=== PATIENT | male | born 1930 | race Caucasian/White ===

== ENCOUNTER 2017-01-01 11:36 | Inpatient (IN) | payer BC, MEDICARE ==
[~2017-01-01] VITALS: Ht 167.6 cm; Wt 63.5 kg
[2017-01-01] VITALS (24 sets, daily range): BP systolic 86–115; BP diastolic 33–66
--- NOTE | 2017-01-01 11:45 | NUR ---
Pt and family unable to provide information about home medications/insulin at this time.
--- NOTE | 2017-01-01 12:27 | NUR ---
evaluating the pt
[2017-01-01] MEDS ORDERED: PIPERACILLIN SODIUM/TAZOBACTAM 3.375 G in IV DEXTROSE 5% 50 ML IV ONE (12:45)
[2017-01-01] MEDS ORDERED: IV NORMAL SALINE 1000 ML BAG IV ONE (12:45)
[2017-01-01] MEDS ORDERED: LEVOFLOXACIN 750MG/D5W 150 ML IV ONE ×2 (12:45→12:51)
[2017-01-01] MEDS ORDERED: PIPERACILLIN/TAZOBACTAM/D5W 50 ML IV ONE (12:51)
[2017-01-01 13:06] LABS: BASOPHILS % (AUTO) 0.3 % (0.0-2.0); EOSINOPHILS % (AUTO) 0.3 % (0.0-7.0); HEMATOCRIT 36.3 % (40.0-50.0); LYMPHOCYTES # (AUTO) 0.5 K/uL (0.8-4.8); LYMPHOCYTES % (AUTO) 4.9 % (20.5-51.5); MEAN CORPUSCULAR HEMOGLOBIN 29.1 uug (27.0-31.0); MEAN CORPUSCULAR HGB CONC 33 g/dL (32.0-37.0); MEAN CORPUSCULAR VOLUME 88.1 fL (82.0-92.0); MONOCYTES # (AUTO) 0.3 K/uL (0.1-1.30); NEUTROPHILS # (AUTO) 8.4 K/uL (1.8-8.9); NEUTROPHILS % (AUTO) 91.5 % (38.5-71.5); PLATELET COUNT (AUTO) 231 K/uL (150-450); RED BLOOD CELL COUNT(AUTO) 4.13 MIL/uL (4.70-6.10); RED CELL DISTRIBUTION WIDTH 19.8 % (11.5-14.5); WHITE BLOOD COUNT (AUTO) 9.2 K/uL (4.0-11.2)
[2017-01-01 13:21] LABS: TROPONIN I 0.027 ng/mL (0.00-0.056)
[2017-01-01 13:24] LABS: LACTIC ACID 1.8 mmol/L (0.4-2.0)
--- NOTE | 2017-01-01 13:28 | NUR ---
Pt's family stated they will bring in a list of pt's home medications later.
[2017-01-01 13:42] LABS: ALBUMIN 2.8 g/dL (3.4-5.0); BILIRUBIN,DIRECT 0.1 mg/dL (0.0-0.2); BILIRUBIN,TOTAL 0.4 mg/dL (0.2-1.0); CALCIUM 8.9 mg/dL (8.5-10.1); POTASSIUM 3.2 mmol/L (3.5-5.1); TOTAL PROTEIN, SERUM 6.7 g/dL (6.4-8.2)
[2017-01-01] MEDS ORDERED: DEXTROSE 50% 50 ML DISP.SYRIN IV PRN (14:30)
[2017-01-01] MEDS ORDERED: ONDANSETRON 4 MG/2 ML VIAL IV PRN (14:30)
[2017-01-01] MEDS ORDERED: ACETAMINOPHEN 325 MG TABLET PO PRN (14:30)
--- NOTE | 2017-01-01 14:40 | NUR ---
mse completed,sbar report to 2nd floor krys rn. admit order written, belongings list done, no skin breakdown noted. 2nd floor to complete infusion.
--- NOTE | 2017-01-01 14:46 | NUR ---
ofelia rivera at the bedside aevaluating the pt.
--- NOTE | 2017-01-01 15:20 | NUR ---
PT RECEIVED FROM ER VIA [facility] FOR WEAKNESS AND HYPOGLYCEMIA .PT IS AXOX3 FORGETFUL .ORIENT THE PT TO ROOM AND SURROUNDINGS..
--- NOTE | 2017-01-01 15:56 | NUR ---
PT TEMP RECTAL 94.6 MAGNETIC TESTING TECHNICIAN ROSE MARY MADE AWARE.
[2017-01-01] MEDS ORDERED: LINA1TAB PO (16:08)
[2017-01-01] MEDS ORDERED: LEVO75TA7 PO (16:11)
[2017-01-01] MEDS ORDERED: CARV6.252 PO (16:11)
[2017-01-01] MEDS ORDERED: ROSU20TA PO (16:14)
[2017-01-01] MEDS: BLOOD SUGAR DIAGNOSTIC 1 EACH STRIP VI SCH ×2 (16:16→20:00)
--- NOTE | 2017-01-01 16:17 | NUR ---
PT BLOOD SUGAR IS 66 PLASTIC BUBBLE PACKER ROSE MARY MADE AWARE,D50 given per orders,lab called to draw the blood.
[2017-01-01] MEDS: POTASSIUM CHLORIDE 20 MEQ in IV D5 1/2 NS 1000 ML 1,000 ML IV PRN (16:25)
--- NOTE | 2017-01-01 16:30 | NUR ---
RECIEVED REPORT FROM [employer]. RECIEVED PT VIA BED AWAKE, ALERT AND ORIENTEDX3.SPEECH IS CLEAR. NO C/O PAIN. HR IS SR. [id number] RECTALLY. PLACED ON BEAR HUGGER. MAIN IVF D51/2NS WITH 20MEQ KCL AT 60ML/HR ON LT WRIST INFUSING WELL. SBP IS RUNNING LOW 84/49. NOTIFIED DR SANDHU OF PTS CONDITION AND TRANSFER WITH NEW ORDERS. ACCU CHECK 157.
[2017-01-01] MEDS: LEVOFLOXACIN 500 MG/D5W 500 MG in PREMIXED 1 EACH IV SCH (16:35)
[2017-01-01] MEDS ORDERED: TICA90TA PO (16:50)
[2017-01-01] MEDS ORDERED: ESOM40CA PO (16:50)
[2017-01-01] MEDS ORDERED: INSU100I24 SQ (16:50)
[2017-01-01] MEDS ORDERED: PRED10TA23 PO (16:50)
[2017-01-01] MEDS ORDERED: DESV50TA PO (16:50)
--- NOTE | 2017-01-01 16:57 | NUR ---
TRANSFER THE PT TO CCU FOR LOW TEMP AND LOW BLOOD SUGAR PER MD ORDERS.
--- NOTE | 2017-01-01 17:45 | NUR ---
CONSENT FOR PICC LINE SIGNED. PICC LINE DONE EDILSON WITH GOOD BLOOD RETURN.PT REFUSED TO EAT DINNER.
--- NOTE | 2017-01-01 17:46 | NUR ---
CLINICAL PHARMACY NOTE:VANCOMYCIN DOSING Request for vancomycin dosing on 86 y/o male 5'6" 140lb for sepsis Temp 94.8 BUN 16, Scr 1.0 WBC 9.2 also on zosyn. Start vancomycin 1gm ivpb q24 hours estimate trough 12. Will order trough level prior to 4 th dose. Will continue to monitor.
--- NOTE | 2017-01-01 18:30 | NUR ---
STARTED LEVOPHED DRIP AT 3MCG/MIN VIA THE PICC LINE FOR SBP <90. CONDITION IS STABLE. REPORT GIVENT TO HARVEST CONTRACTOR.
[2017-01-01] MEDS: PIPERACILLIN/TAZOBACTAM/D5W 50 ML IV SCH (18:32)
[2017-01-01] MEDS: NOREPINEPHRINE BITARTRATE 8 MG in IV DEXTROSE 5% 500 ML IV PRN (18:38)
[2017-01-01] MEDS ORDERED: VANCOMYCIN IV 1 G in PREMIXED 0 EACH IV SCH (20:00)
[2017-01-02] VITALS (96 sets, daily range): BP systolic 52–155; BP diastolic 33–94
[2017-01-02] MEDS: PIPERACILLIN/TAZOBACTAM/D5W 50 ML IV SCH ×5 (00:01→23:52)
[2017-01-02] MEDS: BLOOD SUGAR DIAGNOSTIC 1 EACH STRIP VI SCH ×6 (00:01→20:00)
[2017-01-02 05:27] LABS: TROPONIN I 0.044 ng/mL (0.00-0.056)
[2017-01-02 05:28] LABS: BASOPHILS % (AUTO) 0.1 % (0.0-2.0); EOSINOPHILS % (AUTO) 0.4 % (0.0-7.0); HEMATOCRIT 28.9 % (40.0-50.0); HEMOGLOBIN 9.8 g/dL (14.0-18.0); LYMPHOCYTES # (AUTO) 0.5 K/uL (0.8-4.8); MEAN CORPUSCULAR HGB CONC 34 g/dL (32.0-37.0); MEAN CORPUSCULAR VOLUME 88.4 fL (82.0-92.0); MONOCYTES # (AUTO) 0.3 K/uL (0.1-1.30); MONOCYTES % (AUTO) 3.8 % (0.0-11.0); NEUTROPHILS # (AUTO) 6.4 K/uL (1.8-8.9); NEUTROPHILS % (AUTO) 88.7 % (38.5-71.5); PLATELET COUNT (AUTO) 194 K/uL (150-450); RED BLOOD CELL COUNT(AUTO) 3.27 MIL/uL (4.70-6.10); RED CELL DISTRIBUTION WIDTH 19.8 % (11.5-14.5); WHITE BLOOD COUNT (AUTO) 7.2 K/uL (4.0-11.2)
[2017-01-02 05:34] LABS: THYROID STIMULATING HORMONE 0.692 mIU/mL (0.358-3.740)
[2017-01-02 05:51] LABS: LACTIC ACID 1.5 mmol/L (0.4-2.0)
[2017-01-02 06:01] LABS: ALBUMIN 2.1 g/dL (3.4-5.0); BILIRUBIN,TOTAL 0.4 mg/dL (0.2-1.0); CALCIUM 7.8 mg/dL (8.5-10.1); PHOSPHOROUS 2.1 mg/dL (2.5-4.9); TOTAL PROTEIN, SERUM 5.3 g/dL (6.4-8.2)
[2017-01-02 06:03] LABS: MAGNESIUM 1.2 mg/dL (1.8-2.4)
--- NOTE | 2017-01-02 08:00 | NUR ---
accramya 113, no insulin coverage Addendum: 01/02/17 at 1804 by KASEY REYES RN Amended: Paige added. Addendum: 01/02/17 at 1807 by KASEY REYES RN Amended: Paige added. Addendum: 01/02/17 at 1807 by KASEY REYES RN Amended: Links added.
[2017-01-02] MEDS: PANTOPRAZOLE SODIUM 40 MG VIAL IV SCH (08:45)
[2017-01-02] MEDS ORDERED: PANTOPRAZOLE SODIUM 40 MG VIAL IV ONE (09:00)
--- NOTE | 2017-01-02 09:03 | NUR ---
Clinical Pharmacy Note: Vancomycin Dosing per Pharmacy Subjective: Vancomycin IV to continue on this 86 yo patient for sepsis, likely LLL community-acquired pneumonia Objective: BUN 11/Scr 1 WBC 7.2 Temperature 97.5 ht 5' 76'' wt 140 lb Assessment/Plan: Since srcr stable, will change vancomycin dose from 1gm IVPB q24h to q1gm IVB q22h for predicted vancomycin trough level of 15 at steady state. Second dose of this regimen is due today at 1800. Plan to draw vancomycin trough level before 4th dose (level not yet ordered). Will monitor renal function & adjust the dose if needed. Will continue to follow.
--- NOTE | 2017-01-02 11:00 | NUR ---
seen by dr brock, neurology. no orders received Addendum: 01/02/17 at 1748 by KASEY REYES RN Amended: Links added.
--- NOTE | 2017-01-02 11:30 | NUR ---
2 LOOSE BM NOTED, PATIENT HAD KAYEXELATE EARLIER, ABIGAIL-ANAL CARE PROVIDED Addendum: 01/05/17 at 0717 by JESSICA BENITEZ RN delete previous notes (2BM...)- error, wrong [facility] chart
--- NOTE | 2017-01-02 12:00 | NUR ---
accramya 102, no insulin coverage Addendum: 01/02/17 at 1807 by KASEY REYES RN Amended: Links added.
[2017-01-02] MEDS: POTASSIUM CHLORIDE 20 MEQ in IV D5 1/2 NS 1000 ML 1,000 ML IV PRN (12:40)
--- NOTE | 2017-01-02 14:30 | NUR ---
magnesium sulfate 1 gm times 4 bags started IV for magnesium 1.2, Addendum: 01/02/17 at 175 by KASEY REYES RN Amended: Paige added. Addendum: 01/02/17 at 175 by KASEY REYES RN Amended: Links added. Addendum: 01/02/17 at 1759 by KASEY REYES RN Amended: Links added.
--- NOTE | 2017-01-02 16:00 | NUR ---
accucheck 110, no insulin coverage Addendum: 01/02/17 at 1808 by KASEY REYES RN Amended: Links added.
[2017-01-02] MEDS: MAGNESIUM SULFATE/D5W 100 ML IV SCH ×4 (16:02→18:29)
--- NOTE | 2017-01-02 17:00 | NUR ---
seen by dr house. orders received. patient to remain npo till swallow eval is done. Addendum: 01/02/17 at 1759 by KASEY REYES RN Amended: Links added.
--- NOTE | 2017-01-02 17:20 | NUR ---
kphos times 2 bags started IV for k3.0 and phos 2.1 Addendum: 01/02/17 at 1757 by KASEY REYES RN Amended: Links added. Addendum: 01/02/17 at 1759 by KASEY REYES RN Amended: Links added.
[2017-01-02] MEDS: POTASSIUM PHOSPHATE MM 7.5 MMOL in IV DEXTROSE 5% 100 ML IV SCH ×2 (17:23→19:45)
[2017-01-02] MEDS: NOREPINEPHRINE BITARTRATE 8 MG in IV DEXTROSE 5% 500 ML IV PRN (17:26)
[2017-01-02] MEDS ORDERED: NORMAL SALINE FLUSH 10 ML DISP.SYRIN IV PRN (17:30)
--- NOTE | 2017-01-02 18:13 | NUR ---
remains on levophed drip at 3 mcg/min to keep sbp .100 Addendum: 01/02/17 at 1812 by KASEY REYES RN Amended: Links added. Addendum: 01/02/17 at 1813 by KASEY REYES RN Amended: Links added. Addendum: 01/02/17 at 1814 by KASEY REYES RN Amended: Links added. Addendum: 01/02/17 at 1815 by KASEY REYES RN Amended: Links added. Addendum: 01/02/17 at 1816 by KASEY REYES RN Amended: Links added.
--- NOTE | 2017-01-02 18:14 | NUR ---
remains on bed rest. seen by PT. will reevaluate when off pressor Addendum: 01/02/17 at 1813 by KASEY REYES RN Amended: Paige added. Addendum: 01/02/17 at 1814 by KASEY REYES RN Amended: Paige added. Addendum: 01/02/17 at 1814 by KASEY REYES RN Amended: Links added. Addendum: 01/02/17 at 1816 by KASEY REYES RN Amended: Links added.
--- NOTE | 2017-01-02 18:15 | NUR ---
redness on both heels. kept offloaded. refuses dvt pumps Addendum: 01/02/17 at 1814 by KASEY REYES RN Amended: Links added. Addendum: 01/02/17 at 1814 by KASEY REYES RN Amended: Links added. Addendum: 01/02/17 at 1815 by KASEY REYES RN Amended: Links added.
--- NOTE | 2017-01-02 18:15 | NUR ---
npo for now Addendum: 01/02/17 at 1815 by KASEY REYES RN Amended: Paige nuenz. Addendum: 01/02/17 at 1816 by KASEY REYES RN Amended: Paige nunez.
--- NOTE | 2017-01-02 18:17 | NUR ---
still weak but is able to relay needs to the nursing staff Addendum: 01/02/17 at 1817 by KASEY REYES RN Amended: Links added.
[2017-01-02] MEDS: VANCOMYCIN IV 1 G in PREMIXED 0 EACH IV SCH (18:27)
[2017-01-02 18:30] LABS: *BILIRUBIN,URIN NEGATIVE (NEGATIVE); *BLOOD, URINE 1+ (NEGATIVE); *CLARITY,URINE CLEAR (CLEAR); *COLOR,URINE YELLOW (YELLOW); *KETONES,URINE NEGATIVE (NEGATIVE); *PROTEIN,URINE 2+ (NEGATIVE); *UROBILINOGEN,URINE 0.2 E.U./dl (NORMAL); LEUKOCYTE ESTERASE ,URINE NEGATIVE (NEGATIVE); NITRITE, URINE NEGATIVE (NEGATIVE); UGLUCOSE NEGATIVE (NEGATIVE)
[2017-01-02 18:36] LABS: WBC,URINE 0-3 /HPF (0-3)
[2017-01-02 18:37] LABS: MUCUS,URINE FEW /LPF (0-FEW); SQUAMOUS EPITHELIAL CELL,UR FEW /HPF (NONE SEEN)
[2017-01-02] MEDS: NORMAL SALINE FLUSH 10 ML DISP.SYRIN IV SCH (21:34)
[2017-01-03] VITALS (23 sets, daily range): BP systolic 87–119; BP diastolic 46–70
[2017-01-03] MEDS: BLOOD SUGAR DIAGNOSTIC 1 EACH STRIP VI SCH ×6 (00:01→20:04)
[2017-01-03] MEDS: PIPERACILLIN/TAZOBACTAM/D5W 50 ML IV SCH ×3 (05:25→18:19)
[2017-01-03] MEDS: NORMAL SALINE FLUSH 10 ML DISP.SYRIN IV SCH ×3 (05:25→22:00)
[2017-01-03 05:34] LABS: EOSINOPHILS % (AUTO) 0.8 % (0.0-7.0); HEMATOCRIT 29.6 % (40.0-50.0); HEMOGLOBIN 10.1 g/dL (14.0-18.0); LYMPHOCYTES # (AUTO) 0.5 K/uL (0.8-4.8); LYMPHOCYTES % (AUTO) 8.6 % (20.5-51.5); MEAN CORPUSCULAR HEMOGLOBIN 30.4 uug (27.0-31.0); MEAN CORPUSCULAR HGB CONC 34 g/dL (32.0-37.0); MEAN CORPUSCULAR VOLUME 89.4 fL (82.0-92.0); MONOCYTES # (AUTO) 0.2 K/uL (0.1-1.30); MONOCYTES % (AUTO) 4.2 % (0.0-11.0); NEUTROPHILS % (AUTO) 86.4 % (38.5-71.5); PLATELET COUNT (AUTO) 145 K/uL (150-450); RED BLOOD CELL COUNT(AUTO) 3.32 MIL/uL (4.70-6.10); WHITE BLOOD COUNT (AUTO) 5.7 K/uL (4.0-11.2)
[2017-01-03 05:43] LABS: BILIRUBIN,TOTAL 0.3 mg/dL (0.2-1.0); CALCIUM 7.8 mg/dL (8.5-10.1); CREATININE 0.9 mg/dL (0.6-1.3); MAGNESIUM 1.9 mg/dL (1.8-2.4); PHOSPHOROUS 3.4 mg/dL (2.5-4.9); TOTAL PROTEIN, SERUM 5.2 g/dL (6.4-8.2)
[2017-01-03 05:52] LABS: POTASSIUM 2.8 mmol/L (3.5-5.1)
[2017-01-03] MEDS: PANTOPRAZOLE SODIUM 40 MG VIAL IV SCH (08:43)
[2017-01-03] MEDS: POTASSIUM CHLORIDE 20 MEQ in IV D5 1/2 NS 1000 ML 1,000 ML IV PRN (08:44)
[2017-01-03] MEDS ORDERED: POTASSIUM CHLORIDE 20 MEQ TAB.PRT.SR PO ONE (11:00)
[2017-01-03] MEDS: LEVOFLOXACIN 500 MG/D5W 500 MG in PREMIXED 1 EACH IV SCH (15:53)
[2017-01-03] MEDS: VANCOMYCIN IV 1 G in PREMIXED 0 EACH IV SCH (16:13)
--- NOTE | 2017-01-03 16:36 | NUR ---
Clinical Pharmacy Note: Vancomycin Dosing per Pharmacy Subjective: Vancomycin IV to continue on this 86 yo patient for sepsis, likely LLL community-acquired pneumonia Objective: BUN 6/Scr 0.9 WBC 5.7 Temperature 98.0 ht 5' 76'' wt 140 lb Assessment/Plan: Since srcr stable, will continue vanco 1gm IVB q22h for predicted vancomycin trough level of 15 at steady state. third dose due today 1600. Plan to draw vancomycin trough level before 4th dose (ordered and due on 01/04 @1330). Will check level tomorrow and adjust as needed. Will monitor renal function & adjust the dose if needed. Will continue to follow.
--- NOTE | 2017-01-03 20:00 | NUR ---
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
[2017-01-03] MEDS: MUPIROCIN 2% OINT 22 GM TUBE NS SCH (20:08)
[2017-01-04] VITALS: BP 94/60
--- NOTE | 2017-01-04 | NUR ---
blood sugar 141,no insulin coverage,patient has moderate amount loose stool x1,keep clean and dry,patient slept intermittently,no acute distress.
[2017-01-04] MEDS: BLOOD SUGAR DIAGNOSTIC 1 EACH STRIP VI SCH ×6 (00:08→20:00)
[2017-01-04] MEDS: PIPERACILLIN/TAZOBACTAM/D5W 50 ML IV SCH ×4 (00:08→17:31)
[2017-01-04 04:00] VITALS: BP 105/66
--- NOTE | 2017-01-04 04:00 | NUR ---
blood sugar 178,no insulin coverage per order.
--- NOTE | 2017-01-04 05:37 | NUR ---
patient remains weak,alert and oriented,denies pain ,body temp 98.6,bp 105/66, no acute changed/shift,has loose stool x2,sent to lab for c diff.
[2017-01-04] MEDS: POTASSIUM CHLORIDE 20 MEQ in IV D5 1/2 NS 1000 ML 1,000 ML IV PRN (06:07)
[2017-01-04] MEDS: NORMAL SALINE FLUSH 10 ML DISP.SYRIN IV SCH ×3 (06:08→21:23)
[2017-01-04 06:34] LABS: ALBUMIN 1.8 g/dL (3.4-5.0); BILIRUBIN,TOTAL 0.5 mg/dL (0.2-1.0); CALCIUM 7.6 mg/dL (8.5-10.1); CREATININE 1.1 mg/dL (0.6-1.3); MAGNESIUM 1.8 mg/dL (1.8-2.4); PHOSPHOROUS 2.5 mg/dL (2.5-4.9); TOTAL PROTEIN, SERUM 5.1 g/dL (6.4-8.2)
[2017-01-04 06:47] LABS: EOSINOPHILS % (AUTO) 0.6 % (0.0-7.0); HEMATOCRIT 28.3 % (40.0-50.0); HEMOGLOBIN 9.9 g/dL (14.0-18.0); LYMPHOCYTES # (AUTO) 0.5 K/uL (0.8-4.8); LYMPHOCYTES % (AUTO) 7.1 % (20.5-51.5); MEAN CORPUSCULAR HEMOGLOBIN 31.1 uug (27.0-31.0); MEAN CORPUSCULAR HGB CONC 35 g/dL (32.0-37.0); MEAN CORPUSCULAR VOLUME 88.9 fL (82.0-92.0); MONOCYTES # (AUTO) 0.3 K/uL (0.1-1.30); MONOCYTES % (AUTO) 4.5 % (0.0-11.0); NEUTROPHILS # (AUTO) 6.8 K/uL (1.8-8.9); NEUTROPHILS % (AUTO) 87.8 % (38.5-71.5); PLATELET COUNT (AUTO) 145 K/uL (150-450); RED BLOOD CELL COUNT(AUTO) 3.18 MIL/uL (4.70-6.10); RED CELL DISTRIBUTION WIDTH 19.4 % (11.5-14.5); WHITE BLOOD COUNT (AUTO) 7.6 K/uL (4.0-11.2)
--- NOTE | 2017-01-04 08:00 | NUR ---
RESTING IN BED WITH NO SIGNS OF DISTRESS OR HYPOGLYCEMIA. BS 190 CLOSELY MONITORED
[2017-01-04] MEDS: PANTOPRAZOLE SODIUM 40 MG VIAL IV SCH (08:23)
[2017-01-04] MEDS: MUPIROCIN 2% OINT 22 GM TUBE NS SCH ×2 (08:24→21:21)
--- NOTE | 2017-01-04 10:00 | NUR ---
SEEN BY SPEECH THERAPIST SEE NOTES. PATIENT DID NOT SHOW SIGNS OF ASPIRATION DURING SPEECH EVAL
[2017-01-04] MEDS ORDERED: POTASSIUM CHLORIDE 20 MEQ POWDER PACKET PO ONE (11:30)
[2017-01-04 11:48] VITALS: BP 100/54
--- NOTE | 2017-01-04 14:23 | NUR ---
Clinical Pharmacy Note: Vancomycin Dosing per Pharmacy Subjective: Vancomycin IV to continue on this 86 yo patient for sepsis, likely LLL community-acquired pneumonia Objective: BUN 7/Scr 1.1 WBC 7.6 Temperature 98.6 Vancomycin trough level: 15 ht 5' 76'' wt 140 lb Assessment/Plan: Since vancomycin through level is 15 mcg/ml today, will continue same dose of vanco 1gm IVB q22h for today. Will monitor renal function & adjust the dose if needed. Will continue to follow.
[2017-01-04] MEDS: LEVOFLOXACIN 500 MG/D5W 500 MG in PREMIXED 1 EACH IV SCH (14:31)
[2017-01-04] MEDS: VANCOMYCIN IV 1 G in PREMIXED 0 EACH IV SCH (14:36)
[2017-01-04 15:40] VITALS: BP 102/56
[2017-01-04] MEDS: METFORMIN HCL 500 MG TABLET PO SCH (17:38)
--- NOTE | 2017-01-04 18:01 | NUR ---
CONTINUE CLOSE OBSERVATION, STARTED ON METFORMIN
[2017-01-04 20:24] VITALS: BP 107/56
[2017-01-05] MEDS: PIPERACILLIN/TAZOBACTAM/D5W 50 ML IV SCH ×4 (00:10→17:30)
[2017-01-05] MEDS: BLOOD SUGAR DIAGNOSTIC 1 EACH STRIP VI SCH ×7 (00:10→20:29)
[2017-01-05 00:26] VITALS: BP 113/51
[2017-01-05] MEDS: POTASSIUM CHLORIDE 20 MEQ in IV D5 1/2 NS 1000 ML 1,000 ML IV PRN (03:26)
[2017-01-05 04:37] VITALS: BP 100/51
[2017-01-05] MEDS: NORMAL SALINE FLUSH 10 ML DISP.SYRIN IV SCH ×3 (05:41→21:41)
[2017-01-05] MEDS: PANTOPRAZOLE SODIUM 40 MG TABLET.DR PO SCH (06:29)
--- NOTE | 2017-01-05 07:01 | NUR ---
pt sleeping well overnight, BG checked q 4hrs without any hypoglyemic episode.continue with iv fluids and antibiotics,vss,afebrile sinus rhythm on monitor.all needs attended.
[2017-01-05 07:12] LABS: BASOPHILS % (AUTO) 0.4 % (0.0-2.0); EOSINOPHILS # (AUTO) 0.1 K/uL (0.0-0.7); EOSINOPHILS % (AUTO) 0.9 % (0.0-7.0); HEMOGLOBIN 9.4 g/dL (14.0-18.0); LYMPHOCYTES # (AUTO) 0.8 K/uL (0.8-4.8); LYMPHOCYTES % (AUTO) 11.5 % (20.5-51.5); MEAN CORPUSCULAR HEMOGLOBIN 29.8 uug (27.0-31.0); MEAN CORPUSCULAR HGB CONC 34 g/dL (32.0-37.0); MEAN CORPUSCULAR VOLUME 88.9 fL (82.0-92.0); MONOCYTES # (AUTO) 0.4 K/uL (0.1-1.30); MONOCYTES % (AUTO) 5.7 % (0.0-11.0); NEUTROPHILS # (AUTO) 5.8 K/uL (1.8-8.9); NEUTROPHILS % (AUTO) 81.5 % (38.5-71.5); PLATELET COUNT (AUTO) 141 K/uL (150-450); RED BLOOD CELL COUNT(AUTO) 3.15 MIL/uL (4.70-6.10); RED CELL DISTRIBUTION WIDTH 19.2 % (11.5-14.5); WHITE BLOOD COUNT (AUTO) 7.1 K/uL (4.0-11.2)
[2017-01-05 07:32] LABS: ALBUMIN 1.7 g/dL (3.4-5.0); BILIRUBIN,TOTAL 0.7 mg/dL (0.2-1.0); CALCIUM 7.8 mg/dL (8.5-10.1); CREATININE 1.2 mg/dL (0.6-1.3); MAGNESIUM 1.5 mg/dL (1.8-2.4); POTASSIUM 3.1 mmol/L (3.5-5.1); TOTAL PROTEIN, SERUM 5.1 g/dL (6.4-8.2)
[2017-01-05 07:54] LABS: BAND % (MANUAL) 10 % (0-10); EOSINOPHILS % (MANUAL) 2 % (0-8); LYMPHOCYTES % (MANUAL) 12 % (20-40); MONOCYTES % (MANUAL) 6 % (2-10); NEUTROPHILS % (MANUAL) 70 % (42-75)
[2017-01-05 07:57] LABS: ANISOCYTOSIS 2+; OVALOCYTES 1+; PLATELET ESTIMATE ADEQU; TEAR DROP CELLS 1+
--- NOTE | 2017-01-05 08:00 | NUR ---
awake alert and oriented, denies of pain, incontinent of stool and urine, washed and kept clean and dry, on 02@2l/nc, no dyspnea noted, Tele SR 90's, explained plan of care- verbalized understanding,PICC line on the right upper arm intact and patent, kept on isolation for MRSA nares and pending C diff, safety measures maintained, call light within reach, bed alarm on
[2017-01-05 08:03] LABS: TOXIC GRANULATION 1+
[2017-01-05] MEDS: METFORMIN HCL 500 MG TABLET PO SCH ×2 (08:37→17:31)
[2017-01-05] MEDS: MUPIROCIN 2% OINT 22 GM TUBE NS SCH ×2 (08:40→20:07)
[2017-01-05] MEDS: MAGNESIUM SULFATE/D5W 100 ML IV SCH ×2 (10:26→11:45)
--- NOTE | 2017-01-05 10:30 | NUR ---
family here visiting
[2017-01-05] MEDS: POTASSIUM PHOSPHATE MM 7.5 MMOL in IV DEXTROSE 5% 100 ML IV SCH ×2 (10:34→12:54)
--- NOTE | 2017-01-05 11:24 | NUR ---
Clinical Pharmacy Note: Vancomycin Dosing per Pharmacy Subjective: Vancomycin IV to continue on this 86 yo patient for sepsis, likely LLL community-acquired pneumonia Objective: BUN 6/Scr 1.2 WBC 7.1 Temperature 98.6 ht 5' 76'' wt 140 lb Assessment/Plan: Due to slight increase of srcr, will change vancomycin dose of vanco 1gm IVB q22h to vancomycin 1gm IVPB q24hr for today. Second dose is due today at 1400. Plan to order vancomycin trough level before 4thdose of current regimen. Will monitor renal function & adjust the dose if needed. Will continue to follow.
--- NOTE | 2017-01-05 12:00 | NUR ---
stool for c-diff result negative. Still on contact isolation for MRSA of nares.
[2017-01-05 12:12] VITALS: BP 107/62
[2017-01-05] MEDS: VANCOMYCIN IV 1 G in PREMIXED 0 EACH IV SCH (13:57)
[2017-01-05] MEDS: LEVOFLOXACIN 500 MG TABLET PO SCH (13:57)
[2017-01-05 16:04] VITALS: BP 108/60
[2017-01-05] MEDS: glipiZIDE 5 MG TABLET PO SCH (16:34)
--- NOTE | 2017-01-05 18:00 | NUR ---
ATE FOOD BROUGHT BY FAMILY FROM HOME FOR DINNER, STILL HAS POOR APPETITE
--- NOTE | 2017-01-05 18:35 | NUR ---
Resting in bed, no distress noted, all needs attended and met. Safety measures maintained. Call light and bed alarm on.
--- NOTE | 2017-01-05 19:30 | NUR ---
RECEIVED PT RESTING IN BED, IN NO ACUTE DISTRESS, VISITOR AT BEDSIDE. PT ALERT, ABLE TO MAKE NEEDS KNOWN. IVF INFUSING. SAFETY NEEDS RENDERED. CONTINUE CONTACT ISOLATION FOR MRSA. CALL LIGHT WITHIN REACH, BED ALARM ON. WILL CONTINUE TO MONITOR.
[2017-01-05 20:00] VITALS: BP 96/59
--- NOTE | 2017-01-05 20:05 | NUR ---
PT'S BLOOD GLUCOSE RESULT AT 58. PT ALERT, VERBALLY RESPONSIVE, IN NO ACUTE DISTRESS, NO SYMPTOMS OF HYPOGLYCEMIA NOTED. PROVIDED PT WITH JUICE AND SNACKS. WILL CONTINUE TO MONITOR.
[2017-01-05] MEDS: Z GUARD REMEDY PASTE 57 GM TUBE TOP SCH (20:11)
--- NOTE | 2017-01-05 20:25 | NUR ---
RECHECKED BLOOD GLUCOSE. RESULT OF 59. PT ALERT, VERBALLY RESPONSIVE, IN NO ACUTE DISTRESS. WILL CONTINUE TO MONITOR Addendum: 01/06/17 at 0656 by GERARDO VASQUEZ RN PT WAS GIVEN ORANGE JUICE AND ICE CREAM. WILL MONITOR BLOOD SUGAR.
--- NOTE | 2017-01-05 20:45 | NUR ---
PT REFUSED TO HAVE BLOOD GLUCOSE RECHECKED. PT IS IN NO ACUTE DISTRESS, NO S/S OF HYPOGLYCEMIA NOTED. WILL CONTINUE TO MONITOR.
[2017-01-06 00:09] VITALS: BP 110/62
[2017-01-06] MEDS: PIPERACILLIN/TAZOBACTAM/D5W 50 ML IV SCH ×4 (00:12→17:02)
[2017-01-06] MEDS: BLOOD SUGAR DIAGNOSTIC 1 EACH STRIP VI SCH ×6 (00:14→20:53)
[2017-01-06] MEDS: POTASSIUM CHLORIDE 20 MEQ in IV D5 1/2 NS 1000 ML 1,000 ML IV PRN ×2 (02:25→22:09)
[2017-01-06 04:00] VITALS: BP 107/59
[2017-01-06] MEDS: NORMAL SALINE FLUSH 10 ML DISP.SYRIN IV SCH ×3 (05:02→21:51)
--- NOTE | 2017-01-06 05:47 | NUR ---
PT IN BED, ASLEEP, AROUSABLE, NO ACUTE DISTRESS, BLOOD SUGAR MONITORED Q4H. ASSISTED WITH TOILETING NEEDS, PT KEPT CLEAN/DRY, REPOSITIONED FOR COMFORT. WILL CONTINUE TO MONITOR.
[2017-01-06] MEDS: PANTOPRAZOLE SODIUM 40 MG TABLET.DR PO SCH (06:17)
[2017-01-06] MEDS: LEVOTHYROXINE SODIUM 75 MCG TABLET PO SCH (06:17)
--- NOTE | 2017-01-06 08:00 | NUR ---
resting in bed, refused to eat now, states will eat food from home to be brought by family, accucheck done 121, will wait for him to eat before giving medications for diabetes, gave orange juice per request, explained plan of care-verbalized understanding, needs attended, safety measures maintained, call lite within reach
[2017-01-06] MEDS: MUPIROCIN 2% OINT 22 GM TUBE NS SCH ×2 (08:21→20:53)
[2017-01-06] MEDS: predniSONE 10 MG TABLET PO SCH (08:22)
[2017-01-06] MEDS: Z GUARD REMEDY PASTE 57 GM TUBE TOP SCH ×2 (08:26→20:41)
[2017-01-06] MEDS ORDERED: Medication Not On Formulary EA (Desvenlafaxine Succinate (Pristiq) 50 MG) PO SCH (09:00)
--- NOTE | 2017-01-06 09:00 | NUR ---
called Aida ( daughter ) re food from home-states not bringing home- pt informed and assisted- ate a couple fo bites of egg whites and juice, asked for food preference and told wanted cereal instead- ordered from kitchen
--- NOTE | 2017-01-06 09:10 | NUR ---
family here- and daughter , cereal given- pt encouraged to eat.
--- NOTE | 2017-01-06 10:00 | NUR ---
Clinical Pharmacy Note: Vancomycin Dosing per Pharmacy Subjective: Vancomycin IV to continue on this 86 yo patient for sepsis, likely LLL community-acquired pneumonia Objective: BUN 6/Scr 1.2 WBC 7.1 Temperature 98.6 Nares + MRSA ht 5' 76'' wt 140 lb Assessment/Plan: Will continue same dose of vancomycin 1gm IVPB q24hr for today. Third dose is due today at 1400. Plan to order vancomycin trough level before 4th dose of current regimen (ordered for 01/07 at 1330). Will monitor renal function & adjust the dose if needed. Will continue to follow.
[2017-01-06] MEDS: glipiZIDE 5 MG TABLET PO SCH ×2 (10:17→16:20)
[2017-01-06] MEDS: METFORMIN HCL 500 MG TABLET PO SCH ×2 (10:17→17:02)
[2017-01-06 11:06] VITALS: BP 100/42
[2017-01-06] MEDS ORDERED: LEVO500T15 PO (11:35)
--- NOTE | 2017-01-06 13:00 | NUR ---
ate a little better for lunch, male visitor brought some cookies
--- NOTE | 2017-01-06 14:00 | NUR ---
repositioned and made comfortable
[2017-01-06] MEDS: LEVOFLOXACIN 500 MG TABLET PO SCH (14:11)
[2017-01-06] MEDS: VANCOMYCIN IV 1 G in PREMIXED 0 EACH IV SCH (14:11)
[2017-01-06 15:04] VITALS: BP 102/54
--- NOTE | 2017-01-06 16:15 | NUR ---
BS 327- pt been eating cooked fruit in heavy syrup brought by male visitor earlier- told not to eat it and called Dr Persaud - no order given
--- NOTE | 2017-01-06 18:15 | NUR ---
resting , doesn't like hospital food- states family is bringing food from home- all needs attended and met, tele SR/ST, repositioned q 2h with heels off loaded at all times, slight redness on sacrum noted- z guard applied, skin remains intact, call light within reach
[2017-01-06 20:00] VITALS: BP 104/68
[2017-01-07] VITALS: BP 124/77
[2017-01-07] MEDS: PIPERACILLIN/TAZOBACTAM/D5W 50 ML IV SCH ×3 (00:24→11:44)
[2017-01-07] MEDS: BLOOD SUGAR DIAGNOSTIC 1 EACH STRIP VI SCH ×5 (00:32→16:15)
[2017-01-07 04:00] VITALS: BP 112/64
[2017-01-07] MEDS: NORMAL SALINE FLUSH 10 ML DISP.SYRIN IV SCH ×2 (05:00→13:24)
--- NOTE | 2017-01-07 05:44 | NUR ---
PT SLEPT INTERMITTENTLY, IN NO ACUTE DISTRESS, ACCUCHECK Q4H DONE ORDERED. PICC LINE ON EDILSON INTACT, NO INFILTRATION NOTED. IVF INFUSING. ASSISTED WITH TOILETING NEEDS, REPOSITIONED FOR COMFORT. CALL LIGHT WITHIN REACH, BED ALARM ON. WILL CONTINUE TO MONITOR.
--- NOTE | 2017-01-07 06:00 | NUR ---
PT ON TELE - SR TACH, NO S/S OF DISTRESS. WILL CONTINUE TO MONITOR.
[2017-01-07] MEDS: LEVOTHYROXINE SODIUM 75 MCG TABLET PO SCH (06:31)
[2017-01-07] MEDS: PANTOPRAZOLE SODIUM 40 MG TABLET.DR PO SCH (06:31)
--- NOTE | 2017-01-07 08:00 | NUR ---
RESTING IN BED AWAKE ALERT AND APPROPRIATE NO SIGNS OF HYPOGLYCEMIA CONTINUE BS MONITORING. DC PLAN IN PLACE
[2017-01-07] MEDS: glipiZIDE 5 MG TABLET PO SCH ×2 (08:01→16:20)
[2017-01-07] MEDS: predniSONE 10 MG TABLET PO SCH (08:01)
[2017-01-07] MEDS: METFORMIN HCL 500 MG TABLET PO SCH (08:01)
[2017-01-07] MEDS: MUPIROCIN 2% OINT 22 GM TUBE NS SCH (08:02)
[2017-01-07] MEDS: Z GUARD REMEDY PASTE 57 GM TUBE TOP SCH (08:03)
--- NOTE | 2017-01-07 10:30 | NUR ---
SEEN BY PT AND OT SEE NOTES, PATIENT TOLERATED WELL
[2017-01-07 11:54] VITALS: BP 102/62
--- NOTE | 2017-01-07 12:10 | NUR ---
SEEN BY DR GONZALES SPOKE WITH REGARDING DC PLAN TO [facility]
[2017-01-07] MEDS: LEVOFLOXACIN 500 MG TABLET PO SCH (13:24)
--- NOTE | 2017-01-07 14:26 | NUR ---
Clinical Pharmacy Note: Vancomycin Dosing per Pharmacy Subjective: Vancomycin IV to continue on this 86 yo patient for sepsis, likely LLL community-acquired pneumonia Objective: BUN 6/Scr 1.2 WBC 7.1 (01/05) Temperature 98.6 Nares + MRSA ht 5' 76'' wt 140 lb Trough: 13 (today at 1330) Assessment/Plan: Rescheduled vancomycin to 1gm q21hrs for predicted new trough of 15.8. First dose today at 1430. Plan to order vancomycin trough level before 4th dose of current regimen (not ordered yet). Will monitor renal function & adjust the dose if needed. Will continue to follow.
[2017-01-07] MEDS ORDERED: VANCOMYCIN IV 1 G in PREMIXED 0 EACH IV SCH (14:30)
--- NOTE | 2017-01-07 14:30 | NUR ---
The patient will be discharged today to [facility] [ ; [address] [place] [address]] via [facility]. Spoke to the patients and daughter about the discharge and they were in agreement with the discharge. Martha from [facility] confirmed that they will admit the patient today. His RN, Natalie, is aware of his discharge plan and will call the facility for the report.
[2017-01-07 15:49] VITALS: BP 105/71
--- NOTE | 2017-01-07 18:08 | NUR ---
DISCHARGED TO [facility] VIA AMBULANCE REPORT GIVEN TO SNF STAFF
== END 2017-01-07 18:15 | DRG 871 ==
LOC: ER 11:38 → TELE 14:35 → CCU 16:45 → TELE 01-03 16:07
PROVIDERS: ADMIT Internal Medicine; ATTEND Internal Medicine
PROC: B548ZZA Ultrasonography of Superior Vena Cava, Guidance (ICD-10-PCS; principal; 2017-01-01)
PROC: 02HV33Z Insertion of Infusion Device into Superior Vena Cava, Percutaneous Approach (ICD-10-PCS; principal; 2017-01-01)
DX: A41.9 Sepsis, unspecified organism (principal); J69.0 Pneumonitis due to inhalation of food and vomit; G92 Toxic encephalopathy; E43 Unspecified severe protein-calorie malnutrition; R65.21 Severe sepsis with septic shock; I50.31 Acute diastolic (congestive) heart failure; D68.9 Coagulation defect, unspecified; D68.59 Other primary thrombophilia; J90 Pleural effusion, not elsewhere classified; E11.649 Type 2 diabetes mellitus with hypoglycemia without coma; I25.2 Old myocardial infarction; Z86.73 Personal history of transient ischemic attack (TIA), and cerebral infarction without residual deficits; Z79.4 Long term (current) use of insulin; I95.9 Hypotension, unspecified; G89.29 Other chronic pain; Z85.46 Personal history of malignant neoplasm of prostate; D63.8 Anemia in other chronic diseases classified elsewhere; E83.42 Hypomagnesemia; E87.6 Hypokalemia; E83.39 Other disorders of phosphorus metabolism; R62.7 Adult failure to thrive; Z87.891 Personal history of nicotine dependence; Z98.61 Coronary angioplasty status; I25.10 Atherosclerotic heart disease of native coronary artery without angina pectoris; R19.5 Other fecal abnormalities; Z68.22 Body mass index [BMI] 22.0-22.9, adult; R90.89 Other abnormal findings on diagnostic imaging of central nervous system; G31.84 Mild cognitive impairment of uncertain or unknown etiology; Z22.322 Carrier or suspected carrier of Methicillin resistant Staphylococcus aureus
CPT/HCPCS: 36415; 70030-TC; 70450; 71010; 83605; 83735; 84100; 84153; 84443; 85025; 85730; 87040; 87086; 92610; 93005; 93307; 97001; 97003; 97110; 97112; 97116; 97530; 97535; A4663; C9113; J1956; J2543; J3370; J3475; J3480; J3490; J7030; J7060; J7512